=== PATIENT | male | born 1935 | race Caucasian/White ===

== ENCOUNTER → 2016-08-22 | Outpatient (CLI) | payer MEDICARE, OTHER ==
[~2016-08-22] MED LIST: ASPI81TA82 PO; CO Q60CA2 PO; ENAL5TAB98; ERYT1O RIGHT EYE; HYDR12.56 PO; LISI-363 PO; MULT-65 PO; OCUF0.3D OD; OCUVTAB4 PO; PERC5TAB12 PO; SIMV5TAB32; TAMS5CAP PO
== END ==
LOC: PLAB 07:43
PROVIDERS: ATTEND Urology
DX: R94.4 Abnormal results of kidney function studies (principal)
CPT/HCPCS: 36415; 82565; 84520

== ENCOUNTER → 2016-12-26 | Outpatient (CLI) | payer MEDICARE, OTHER ==
[~2016-12-26] MED LIST changes: +ASPI81TA5 PO; -ASPI81TA82 PO; +CO Q10CA PO; -CO Q60CA2 PO; -ENAL5TAB98; -ERYT1O RIGHT EYE; +FISH100020 PO; +GLUC500T4 PO; -HYDR12.56 PO; -LISI-363 PO; -MULT-65 PO; -OCUF0.3D OD; +ONCETAB7 PO; -PERC5TAB12 PO; +SIMV40TA PO; -SIMV5TAB32; -TAMS5CAP PO; +VITA100036 PO
[2016-12-26 09:43] LABS: AUTOMATED NEUTROPHIL # 2.3 TH/MM3 (1.8-7.7); BASOPHIL # 0.2 TH/MM3 (0-0.2); BASOPHIL % 3.1 % (0.0-2.0); EOSINOPHIL # 0.3 TH/MM3 (0-0.4); EOSINOPHIL % 5.9 % (0.0-4.0); HEMATOCRIT 28.1 % (39.0-51.0); HEMO FLAGS DIFF FINAL; LYMPH % 38.5 % (9.0-44.0); MEAN CELL VOLUME 102.9 FL (80.0-100.0); MEAN CORPUSCULAR HEMOGLOBIN 35.5 PG (27.0-34.0); MEAN CORPUSCULAR HGB CONC 34.5 % (32.0-36.0); MONO % 8.4 % (0.0-8.0); NEUT % 44.1 % (16.0-70.0); PLATELET COUNT 281 TH/MM3 (150-450); RED BLOOD COUNT 2.73 MIL/MM3 (4.50-5.90); RED CELL DISTRIBUTION WIDTH 14.4 % (11.6-17.2); WHITE BLOOD COUNT 5.3 TH/MM3 (4.0-11.0)
[2016-12-26 10:13] LABS: ANION GAP 10 MEQ/L (5-15); AST (GOT) 22 U/L (15-37); BICARBONATE 24.1 MEQ/L (21.0-32.0); BLOOD UREA NITROGEN 37 MG/DL (7-18); CHLORIDE 104 MEQ/L (98-107); GLOMERULAR FILTRATION RATE 43 ML/MIN (>89); SODIUM (NA) 138 MEQ/L (136-145)
[2016-12-26 10:14] LABS: GLUCOSE,FASTING 103 MG/DL (74-99)
[2016-12-26 10:27] LABS: ALKALINE PHOSPHATASE 101 U/L (45-117); ALT (GPT) 35 U/L (12-78); HDL CHOLESTEROL 54.8 MG/DL (40.0-60.0); LDL CHOLESTEROL 78 MG/DL (0-99); TOTAL BILIRUBIN ADULT 0.7 MG/DL (0.2-1.0)
[2016-12-26 18:10] LABS: HEMOGLOBIN A1b 0.9 %; HEMOGLOBIN Ao 85.3 %; HEMOGLOBIN P3 5.5 %
== END ==
LOC: PLAB 07:01
PROVIDERS: ATTEND Family Medicine
DX: R73.02 Impaired glucose tolerance (oral) (principal)
CPT/HCPCS: 36415; 80053; 80061; 83036; 84443; 85025

== ENCOUNTER → 2017-04-02 | Outpatient (CLI) | payer MEDICARE, OTHER ==
[2017-04-02 09:44] LABS: AUTOMATED NEUTROPHIL # 3.2 TH/MM3 (1.8-7.7); BASOPHIL # 0.2 TH/MM3 (0-0.2); BASOPHIL % 2.2 % (0.0-2.0); EOSINOPHIL # 0.5 TH/MM3 (0-0.4); EOSINOPHIL % 7.1 % (0.0-4.0); HEMATOCRIT 28.3 % (39.0-51.0); HEMOGLOBIN 9.8 GM/DL (13.0-17.0); LYMPH % 34.8 % (9.0-44.0); LYMPHOCYTE # 2.4 TH/MM3 (1.0-4.8); MEAN CELL VOLUME 104.7 FL (80.0-100.0); MEAN CORPUSCULAR HGB CONC 34.4 % (32.0-36.0); MEAN PLATELET VOLUME 8.7 FL (7.0-11.0); MONO % 8.3 % (0.0-8.0); MONOCYTE # 0.6 TH/MM3 (0-0.9); NEUT % 47.6 % (16.0-70.0); PLATELET COUNT 289 TH/MM3 (150-450); RED BLOOD COUNT 2.71 MIL/MM3 (4.50-5.90); RED CELL DISTRIBUTION WIDTH 14.1 % (11.6-17.2); WHITE BLOOD COUNT 6.8 TH/MM3 (4.0-11.0)
[2017-04-02 09:54] LABS: ALBUMIN 3.4 GM/DL (3.4-5.0); AST (GOT) 24 U/L (15-37); BICARBONATE 23.5 MEQ/L (21.0-32.0); BLOOD UREA NITROGEN 38 MG/DL (7-18); CALCIUM 9.2 MG/DL (8.5-10.1); CHLORIDE 105 MEQ/L (98-107); CREATININE 1.56 MG/DL (0.60-1.30); GLOMERULAR FILTRATION RATE 43 ML/MIN (>89); GLUCOSE,FASTING 99 MG/DL (74-99); SODIUM (NA) 138 MEQ/L (136-145)
[2017-04-02 10:04] LABS: % SATURATION IRON PROFILE 47.5 % (20-50); ALKALINE PHOSPHATASE 90 U/L (45-117); ALT (GPT) 30 U/L (12-78); FERRITIN 818 NG/ML (26-388); FREE T4 0.87 NG/DL (0.76-1.46); IRON (FE) 153 MCG/DL (65-175); TOTAL BILIRUBIN ADULT 0.6 MG/DL (0.2-1.0); TOTAL IRON BINDING CAPACITY 322 MCG/DL (250-450); TOTAL PROTEIN 6.8 GM/DL (6.4-8.2)
== END ==
LOC: PLAB 07:26
PROVIDERS: ATTEND Family Medicine
DX: E03.9 Hypothyroidism, unspecified (principal); N18.3 Chronic kidney disease, stage 3 (moderate)
CPT/HCPCS: 36415; 80053; 82306; 82728; 83540; 83550; 83970; 84439; 84443; 85025

== ENCOUNTER → 2017-07-14 | Day surgery (SDC) | payer MEDICARE, OTHER ==
[~2017-07-14] MED LIST changes: -ASPI81TA5 PO; +BUPIVACAINE HCL PF 0.5% 30 ML VIAL ONE; +CHOL10008 PO; +ECASA81 PO; +PROPOFOL 200 MG/20 ML AMP IV ONE; +TRIAMCINOLONE ACETONIDE 40 MG/ML VIAL I-ARTICULR ONE; -VITA100036 PO; +methylPREDNISolone ACETATE 40 MG/ML VIAL I-ARTICULR ONE
--- NOTE | 2017-07-15 23:01 | M6 ---
cc: ROSALBA CALDERON M.D. DATE: 07/14/2017 DATE OF : 1935 PROCEDURE Fluoroscopically guided injection right hip joint. History and physical was completed and signed. Consent was signed. Procedure site was marked. Medications were listed and reconciled. Pain score was recorded. Allergies were noted. Time out was taken. Fluoroscopy time was recorded where applicable. Sedation was administered or directed by Dr. Calderon. The patient was given oxygen. The patient was monitored by a registered nurse. Total procedure time was greater than 15 minutes. PROCEDURE NOTE: IV was started, blood pressure cuff, pulse oximeter and EKG were applied. The patient was placed in the supine position on a Alexi table sedated with small amounts of propofol titrated to effect. Vital signs were monitored and remained stable throughout the procedure. The right hip area was prepped with alcohol and 10% Betadine solution, draped with sterile drapes. Fluoroscopy was used to visualize the right acetabulum. A 3-1/2 inch 22-gauge spinal needle was advanced into the cephalad portion of the acetabulum. There was negative aspiration for blood or any other type of fluid and the patient was given 3 mL of 0.5% Marcaine, 20 mg of Depo-Medrol, 20 mg of Kenalog. Following the procedure the patient was taken to the recovery room with stable vital signs neurologically intact. W. MD CLEOPATRA Walker/TAMY /8:59 AM /10:47 PM
== END | disposition home or self-care (01) ==
LOC: PHSDC 06:38
PROVIDERS: ATTEND Pain Medicine Interventional Pain Medicine
DX: M25.551 Pain in right hip (principal); I35.0 Nonrheumatic aortic (valve) stenosis; E78.5 Hyperlipidemia, unspecified; I10 Essential (primary) hypertension; D64.9 Anemia, unspecified; R60.9 Edema, unspecified; Z85.51 Personal history of malignant neoplasm of bladder
CPT/HCPCS: 20610; 99152; J1030; J3301

== ENCOUNTER 2018-07-21 12:50 | Observation (INO) ==
[2018-07-21] MEDS ORDERED: Sod Chloride 0.9% Inj 1,000 ML IV.SIG SCH (13:15)
--- NOTE | 2018-07-21 13:36 | XR ---
EXAM DATE: 07/21/2018 1:33 PM EST AGE/SEX: 83 years / Male INDICATIONS: Fever, weakness, loss of appetite for a few days. Shoulder pain x 1 month with no known injury. CLINICAL DATA: This is the patient's initial encounter. Patient reports that signs and symptoms have been present for 4 - 6 days and indicates a pain score of 7/10. MEDICAL/SURGICAL HISTORY: Hypercholesterolemia. Hypertension. Hypothyroidism. Aortic stenosi s. Chronic kidney disease. None. COMPARISON: [facility], CHEST SINGLE AP, 01/15/2014. . FINDINGS: No significant focal pleural or parenchymal opacities. Mild interstitial prominence. Cardiomediastina l contours are within normal limits. Chronic appearing displaced right clavicle fracture. CONCLUSION: 1. No acute cardiopulmonary disease. 2. Senescent changes with chronic appearing displaced right clavicle fracture. Electronically signed by: Dayne Tracy MD Board Certified Radiologist 07/21/2018 1:34 PM EST
--- NOTE | 2018-07-21 13:39 | ED ---
HPI General Chief complaint: Weakness Stated complaint: Evac/weakness Time Seen by Provider: 07/21/18 12:57 Source: patient, family, EMS and old records reviewed Mode of arrival: EMS Limitations: altered mental status History of Present Illness HPI narrative: Elderly 83-year-old man, presents to the emergency department sent by home health for low blood pressure. Patient lives with his daughter, typically walks with a walker, has a lot of trouble getting around, has difficulty ambulating, needs assistance with toileting, can feed himself but is otherwise dependent on his ADLs. They report that he has had pain in his legs recently, some pain in his shoulder , saw Dr. Alfaro recently for shoulder pain and had an injection of steroids. Since then he has had continued worsening weakness, feeling poorly, decreased appetite. He said some weight loss over the past several months with his decreased appetite. home health nurse came to check on him today and found his blood pressure was low about 105 or so. Related Data Home Medications Medication Instructions Recorded Confirmed levothyroxine 25 mcg PO DAILY 07/21/18 07/21/18 lisinopril-hydrochlorothiazide 1 tab PO DAILY 07/21/18 07/21/18 simvastatin 40 mg PO QPM 07/21/18 07/21/18 tramadol 50 mg PO QID 07/21/18 07/21/18 Allergies Allergy/AdvReac Type Severity Reaction Status Date / Time No Known Allergies Allergy Verified 07/21/18 13:05 Review of Systems ROS: all other systems reviewed are negative [facility] Medical History Medical History Aortic stenosis (Acute) CKD (chronic kidney disease) (Acute) HTN (hypertension) (Acute) Hypercholesteremia (Acute) Hypothyroidism (Acute) Social History Social History Substance History: No History of Abuse Second Hand Smoke Exposure: No Smoking Status: Never smoker How Often Do You Have a Drink Containing Alcohol: Never Recent Travel in [facility] within the Last 8 Weeks: No Recent Out of Country Travel within the Last 8 Weeks: No Immunization History Tetanus Immunization: >5 Years Exam Narrative Exam Narrative: GENERAL: Elderly adult male, nontoxic, frail-appearing, chronically ill. SKIN: Focused skin assessment warm/dry. Decreased skin turgor. HEAD: Atraumatic. Normocephalic. EYES: Pupils equal and round. No scleral icterus. No injection or drainage. ENT: No nasal bleeding or discharge. Mucous membranes pink and moist. NECK: Trachea midline. No JVD. CARDIOVASCULAR: Regular rate and rhythm. No murmur appreciated. RESPIRATORY: No accessory muscle use. Clear to auscultation. Breath sounds equal bilaterally. GASTROINTESTINAL: Abdomen soft, non-tender, nondistended. Hepatic and splenic margins not palpable. MUSCULOSKELETAL: No obvious deformities. Trace swelling both lower extremities. NEUROLOGICAL: Awake and alert. Some confusion. No obvious cranial nerve deficits. Motor grossly within normal limits. Normal speech. Course Initial Documented Vital Signs Temperature 98.4 F 07/21/18 12:56 Pulse Rate 105 H 07/21/18 12:56 Respiratory Rate 16 07/21/18 12:56 Blood Pressure 100/59 L 07/21/18 12:56 Pulse Oximetry 98 07/21/18 12:56 Last Documented Vital Signs Temperature 98.4 F 07/21/18 12:56 Pulse Rate 98 H 07/21/18 15:46 Respiratory Rate 16 07/21/18 15:46 Blood Pressure 94/60 L 07/21/18 15:46 Pulse Oximetry 96 07/21/18 15:46 Medical Decision Making MDM Narrative Medical decision making narrative: 83-year-old man who presents to the emergency department complaining of chronic right shoulder pain, right hip pain , lower extremity pain, in the setting of decreased appetite, dehydration, weakness with low blood pressure and elevated tachycardia. Possible infection. Possible dehydration. Will check labs, IV fluids, urine, reassess. Medical Screen Exam Complete: Yes Emergency Medical Condition: Yes Lab Data Lab results reviewed: Yes I reviewed the patient's lab results. Result diagrams: 07/21/18 13:40 07/21/18 13:40 Lab Results 07/21/18 07/21/18 07/21/18 Range/Units 13:40 13:40 13:40 CBC w Diff Auto diff final WBC 12.8 H (4.0-11.0) th/mm3 RBC 2.91 L (4.50-5.90) mil/mm3 Hgb 10.1 L (13.0-17.0) gm/dL Hct 29.6 L (39.0-51.0) % MCV 101.9 H (80.0-100.0) fL MCH 34.9 H (27.0-34.0) pg MCHC 34.3 (32.0-36.0) % RDW 15.0 (11.6-17.2) % Plt Count 557 H (150-450) th/mm3 MPV 7.6 (7.0-11.0) fL Neut % (Auto) 73.4 H (16.0-70.0) % Lymph % (Auto) 17.4 (9.0-44.0) % Obion % (Auto) 7.6 (0.0-8.0) % Eos % (Auto) 0.7 (0.0-4.0) % Baso % (Auto) 0.9 (0.0-2.0) % Neut # (Auto) 9.4 H (1.8-7.7) th/mm3 Lymph # (Auto) 2.2 (1.0-4.8) th/mm3 Obion # (Auto) 1.0 H (0.0-0.9) th/mm3 Eos # (Auto) 0.1 (0.0-0.4) th/mm3 Baso # (Auto) 0.1 (0.0-0.2) th/mm3 WBC Differential . Differential Comment . Sodium 139 (136-145) meq/L Potassium 4.9 (3.5-5.1) meq/L Chloride 104 (98-107) meq/L Carbon Dioxide 26.4 (21.0-32.0) meq/L Anion Gap 9 (5-15) meq/L BUN 59 H (7-18) mg/dL Creatinine 1.50 H (0.60-1.30) mg/dL Estimated GFR 45 L (>89) mL/min Random Glucose 93 (74-106) mg/dL Lactic Acid 2.2 H (0.4-2.0) mmol/L Calcium 9.5 (8.5-10.1) mg/dL Magnesium 1.9 (1.5-2.5) mg/dL Total Bilirubin 0.7 (0.2-1.0) mg/dL AST 45 H (15-37) U/L ALT 36 (12-78) U/L Alkaline Phosphatase 479 H (45-117) U/L Troponin I 0.07 H (0.02-0.05) ng/mL Total Protein 7.8 (6.4-8.2) g/dL Albumin 2.4 L (3.4-5.0) g/dL Ur Collection Type Urine Color (Yellw/Straw) Urine Clarity (Clear) Urine pH (5.0-8.5) Ur Specific Lander (1.002-1.035) Urine Protein (Neg-Trace) mg/dL Urine Glucose (UA) (Negative) mg/dL Urine Ketones (Negative) mg/dL Urine Occult Blood (Negative) Urine Nitrate (Negative) Urine Bilirubin (Negative) Urine Urobilinogen (Less than 2) mg/dL Ur Leukocyte Esterase (Negative) Urine RBC (0-3) /hpf Ur Transition Epith Cell (None) /hpf Amorphous Sediment (None) /hpf Micro UA Comment Ur Microscopic Review Urine Culture Comments Urine Collection Time hours 07/21/18 Range/Units 15:00 CBC w Diff WBC (4.0-11.0) th/mm3 RBC (4.50-5.90) mil/mm3 Hgb (13.0-17.0) gm/dL Hct (39.0-51.0) % MCV (80.0-100.0) fL MCH (27.0-34.0) pg MCHC (32.0-36.0) % RDW (11.6-17.2) % Plt Count (150-450) th/mm3 MPV (7.0-11.0) fL Neut % (Auto) (16.0-70.0) % Lymph % (Auto) (9.0-44.0) % Obion % (Auto) (0.0-8.0) % Eos % (Auto) (0.0-4.0) % Baso % (Auto) (0.0-2.0) % Neut # (Auto) (1.8-7.7) th/mm3 Lymph # (Auto) (1.0-4.8) th/mm3 Obion # (Auto) (0.0-0.9) th/mm3 Eos # (Auto) (0.0-0.4) th/mm3 Baso # (Auto) (0.0-0.2) th/mm3 WBC Differential Differential Comment Sodium (136-145) meq/L Potassium (3.5-5.1) meq/L Chloride (98-107) meq/L Carbon Dioxide (21.0-32.0) meq/L Anion Gap (5-15) meq/L BUN (7-18) mg/dL Creatinine (0.60-1.30) mg/dL Estimated GFR (>89) mL/min Random Glucose (74-106) mg/dL Lactic Acid (0.4-2.0) mmol/L Calcium (8.5-10.1) mg/dL Magnesium (1.5-2.5) mg/dL Total Bilirubin (0.2-1.0) mg/dL AST (15-37) U/L ALT (12-78) U/L Alkaline Phosphatase (45-117) U/L Troponin I (0.02-0.05) ng/mL Total Protein (6.4-8.2) g/dL Albumin (3.4-5.0) g/dL Ur Collection Type Cath Urine Color Yellow (Yellw/Straw) Urine Clarity Clear (Clear) Urine pH 5.5 (5.0-8.5) Ur Specific Lander 1.020 (1.002-1.035) Urine Protein Negative (Neg-Trace) mg/dL Urine Glucose (UA) Negative (Negative) mg/dL Urine Ketones 15 H (Negative) mg/dL Urine Occult Blood Small H (Negative) Urine Nitrate Negative (Negative) Urine Bilirubin Negative (Negative) Urine Urobilinogen 0.2 (Less than 2) mg/dL Ur Leukocyte Esterase Negative (Negative) Urine RBC 4-15 H (0-3) /hpf Ur Transition Epith Cell Greater than 10 H (None) /hpf Amorphous Sediment Few H (None) /hpf Micro UA Comment Cath-culture not ind Ur Microscopic Review Microscopic reviewed Urine Culture Comments Cath-cult not ind Urine Collection Time 1500 hours Imaging Data Radiologist's impression: Chest X-Ray 07/21/18 13:07 CONCLUSION: 1. No acute cardiopulmonary disease. 2. Senescent changes with chronic appearing displaced right clavicle fracture. 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 Discharge Plan Discharge Disposition Patient Disposition: ED Admit(ED Internal Use Only) Discharge Order Discharge Orders: ED Use Only Admit Order (Routine); Ordered 07/21/18 Ordered By: Selvin Bourne Physicians Team ED Provider: Selvin Bourne Primary Care Provider: Robbi Peng Attending Provider: Khoa Beyer Discharge Interventions Interventions: Vital Signs Last Done: 07/21/18 13:54 Status ED Status: Admitted Observation Patient
[2018-07-21 14:05] LABS: Baso # (Auto) 0.1 th/mm3 (0.0-0.2); Baso % (Auto) 0.9 % (0.0-2.0); Eos # (Auto) 0.1 th/mm3 (0.0-0.4); Eos % (Auto) 0.7 % (0.0-4.0); Hematocrit 29.6 % (39.0-51.0); Hemoglobin 10.1 gm/dL (13.0-17.0); Lymph # (Auto) 2.2 th/mm3 (1.0-4.8); Lymph % (Auto) 17.4 % (9.0-44.0); Mean Corpuscular HGB Conc 34.3 % (32.0-36.0); Mean Corpuscular Hemoglobin 34.9 pg (27.0-34.0); Mean Corpuscular Volume 101.9 fL (80.0-100.0); Mean Platelet Volume 7.6 fL (7.0-11.0); Mono % (Auto) 7.6 % (0.0-8.0); Neut # (Auto) 9.4 th/mm3 (1.8-7.7); Neut % (Auto) 73.4 % (16.0-70.0); Platelet Count 557 th/mm3 (150-450); Red Blood Count 2.91 mil/mm3 (4.50-5.90); White Blood Count 12.8 th/mm3 (4.0-11.0)
[2018-07-21 14:06] LABS: Chloride 104 meq/L (98-107); Potassium 4.9 meq/L (3.5-5.1); Sodium 139 meq/L (136-145)
[2018-07-21 14:09] LABS: Albumin 2.4 g/dL (3.4-5.0); Calcium 9.5 mg/dL (8.5-10.1)
[2018-07-21 14:10] LABS: Anion Gap 9 meq/L (5-15); Blood Urea Nitrogen 59 mg/dL (7-18); Carbon Dioxide 26.4 meq/L (21.0-32.0); Glucose,Random 93 mg/dL (74-106); Magnesium 1.9 mg/dL (1.5-2.5)
[2018-07-21 14:13] LABS: Alanine Aminotransferase 36 U/L (12-78); Aspartate Aminotransferase 45 U/L (15-37); Glomerular Filtration Rate 45 mL/min (>89)
[2018-07-21 14:14] LABS: Total Protein 7.8 g/dL (6.4-8.2)
[2018-07-21 14:15] LABS: Alkaline Phosphatase 479 U/L (45-117)
[2018-07-21 14:18] LABS: Troponin I 0.07 ng/mL (0.02-0.05)
[2018-07-21 15:19] LABS: Bilirubin,Urine Negative (Negative); Clarity,Urine Clear (Clear); Color,Urine Yellow (Yellw/Straw); Glucose,Urine (UA) Negative (Negative); Leukocyte Esterase,Urine Negative (Negative); Nitrite,Urine Negative (Negative); PH,Urine 5.5 (5.0-8.5); Urobilinogen,Urine 0.2 mg/dL (Less than 2)
[2018-07-21 15:22] LABS: Amorphous Sediment,Urine Few /hpf; Transitional Epi Cells,Urine Greater than 10 /hpf
[2018-07-21] MEDS ORDERED: Acetaminophen 325 MG Tablet PO PRN (15:42)
--- NOTE | 2018-07-21 15:55 | P.HPIM ---
History of Present Illness Primary Care Physician: Robbi Peng MD Chief Complaint: Generalized weakness History of Present Illness: 83-year-old man with a past medical history of hypertension, hyperlipidemia, chronic kidney disease was brought to the ED for evaluation of generalized weakness, left shoulder and left hip pain as well as low BP. Morning, patient was noted to have systolic BP of 105. Is a decrease significant appetite. Patient was seen by his PCP and he did receive a steroid injection in the left shoulder 6-8 days ago. Patient currently lives with his daughter who states, he has been having trouble getting around and also had difficulty ambulating. There has been no recent trauma or fall reported. In the ED patient has soft BP, elevated lactic acid as well as WBC however UA and chest x-ray unremarkable. Review of Systems Review of Systems: all other systems reviewed are negative [facility] Medical History Medical History Aortic stenosis (Acute) CKD (chronic kidney disease) (Acute) HTN (hypertension) (Acute) Hypercholesteremia (Acute) Hypothyroidism (Acute) Social History Social History Substance History: No History of Abuse Second Hand Smoke Exposure: No Smoking Status: Never smoker How Often Do You Have a Drink Containing Alcohol: Never Recent Travel in [facility] within the Last 8 Weeks: No Recent Out of Country Travel within the Last 8 Weeks: No Immunization History Tetanus Immunization: >5 Years Medications and Allergies Allergies Allergy/AdvReac Type Severity Reaction Status Date / Time No Known Allergies Allergy Verified 07/21/18 13:05 Home Medications Medication Instructions Recorded Confirmed Type levothyroxine 25 mcg PO DAILY 07/21/18 07/21/18 History lisinopril-hydrochlorothiazide 1 tab PO DAILY 07/21/18 07/21/18 History simvastatin 40 mg PO QPM 07/21/18 07/21/18 History tramadol 50 mg PO QID 07/21/18 07/21/18 History Active Medications: Active Medications Acetaminophen (Tylenol) 650 mg PO Q4H PRN PRN Reason: Temp > 100.4 Al Hydroxide/Mg Hydroxide (Milk Of Magnesia Liq) 30 ml PO Q12H PRN PRN Reason: Mild Constipation Sodium Chloride (Ns Inj) 1,000 mls @ 100 mls/hr IV.CONT .Q10H [facility] Levothyroxine Sodium (Synthroid) 25 mcg PO DAILY [facility] Non-Formulary Medication (Simvastatin [Simvastatin]) 40 mg PO QPM [facility] Ondansetron HCl (Zofran Inj) 4 mg IV.PUSH Q6H PRN PRN Reason: NAUSEA OR VOMITING Sodium Chloride (Ns Flush) 2 ml IV.FLUSH PRN PRN PRN Reason: FLUSH AFTER USING IV ACCESS Sodium Chloride (Ns Flush) 2 ml IV.FLUSH BID [facility] Physical Exam Vital signs: Vital Signs 07/21/18 12:56 07/21/18 13:07 07/21/18 13:16 Temperature 98.4 F Pulse Rate 105 H 100 H 102 H Respiratory Rate 16 16 Blood Pressure 100/59 L 102/62 Pulse Oximetry 98 98 98 07/21/18 13:54 07/21/18 15:46 Temperature Pulse Rate 105 H 98 H Respiratory Rate 16 16 Blood Pressure 95/57 L 94/60 L Pulse Oximetry 97 96 Intake & Output 07/20/18 07/21/18 07/21/18 18:59 06:59 18:59 Weight 90.718 kg Narrative: GENERAL: Chronically ill elderly man in [facility] SKIN: Warm and dry. HEAD: Atraumatic. Normocephalic. EYES: Pupils equal and round. No scleral icterus. No injection or drainage. ENT: No nasal bleeding or discharge. Mucous membranes pink and moist. NECK: Trachea midline. No JVD. CARDIOVASCULAR: Regular rate and rhythm. RESPIRATORY: No accessory muscle use. Clear to auscultation. Breath sounds equal bilaterally. GASTROINTESTINAL: Abdomen soft, non-tender, nondistended. Hepatic and splenic margins not palpable. MUSCULOSKELETAL: Extremities without clubbing, cyanosis, or edema. No obvious deformities. NEUROLOGICAL: Awake and alert. No obvious cranial nerve deficits. Motor grossly within normal limits. Five out of 5 muscle strength in the arms and legs. PSYCHIATRIC: Appropriate mood and affect; insight and judgment normal. Urinary Catheter Management Straight: Cath placed during this visit: no Reason for continuing: Not indwelling catheter Results Labs CBC & Chem 7: 07/21/18 13:40 07/21/18 13:40 Imaging Impressions Chest X-Ray 07/21/18 13:07 CONCLUSION: 1. No acute cardiopulmonary disease. 2. Senescent changes with chronic appearing displaced right clavicle fracture. Caprini VTE Risk Assessment Caprini Risk Assessment Model: Point Value = 1 Point Value = 2 Point Value = 3 Point Value = 5 Age 41-60 Minor surgery BMI > 25 kg/m2 Swollen legs Varicose veins or History of unexplained or recurrent spontaneous Oral contraceptives or hormone replacement Sepsis (< 1 month) Serious lung disease, including pneumonia (< 1 month) Abnormal pulmonary function Acute myocardial infarction Congestive heart failure (< 1 month) History of inflammatory bowel disease Medical patient at bed rest Age 61-74 Arthroscopic surgery Major open surgery (> 45 min) Laparoscopic surgery (> 45 min) Malignancy Confined to bed (> 72 hours) Immobilizing plaster cast Central venous access Age >= 75 History of VTE Family history of VTE Factor V Leiden Prothrombin [id number] Lupus anticoagulant Anticardiolipin antibodies Elevated serum homocysteine Heparin-induced thrombocytopenia Other congenital or acquired thrombophilia Stroke (< 1 month) Elective arthroplasty Hip, pelvis, or leg fracture Acute spinal cord injury (< 1 month) Prophylaxis Regimen: Total Risk Factor Score Risk Level Prophylaxis Regimen 0-1 Low Early ambulation 2 Moderate Order ONE of the following: *Sequential Compression Device (SCD) *Heparin 5000 units SQ BID 3-4 Higher Order ONE of the following medications: *Heparin 5000 units SQ TID *Enoxaparin/Lovenox 40 mg SQ daily (WT < 150 kg, CrCl > 30 mL/min) *Enoxaparin/Lovenox 30 mg SQ daily (WT < 150 kg, CrCl > 10-29 mL/min) *Enoxaparin/Lovenox 30 mg SQ BID (WT < 150 kg, CrCl > 30 mL/min) AND/OR *Sequential Compression Device (SCD) 5 or more Highest Order ONE of the following medications: *Heparin 5000 units SQ TID (Preferred with Epidurals) *Enoxaparin/Lovenox 40 mg SQ daily (WT < 150 kg, CrCl > 30 mL/min) *Enoxaparin/Lovenox 30 mg SQ daily (WT < 150 kg, CrCl > 10-29 mL/min) *Enoxaparin/Lovenox 30 mg SQ BID (WT < 150 kg, CrCl > 30 mL/min) AND *Sequential Compression Device (SCD) Assessment and Plan Plan 83-year-old man with Hypotension Dehydration Will hold all oral antihypertensive medications Continue with IV fluid hydration Lactic acidosis Likely secondary to dehydration Continue with IV fluid hydration and monitor lactic acid level Leukocytosis Secondary to stress reactive UA negative, chest x-ray unremarkable Will hold on starting any IV antibiotics until blood culture report noted Continue to monitor WBC Chronic kidney disease Currently patient at baseline Continue to monitor BUN and creatinine, avoid all nephrotoxic drug Elevated troponin I Likely secondary to chronic kidney disease Patient denies any chest pain Continue to monitor Anemia of chronic disease H&H stable and patient denies any current gross bleeding Continue to monitor H&H Left shoulder and left hip pain Recent steroid injection to left shoulder Chronic and patient denies any recent fall or trauma Consult PT and OT Check left shoulder and left hip x-rays DVT prophylaxis: Bilateral SCDs
[2018-07-21] MEDS: Sod Chloride 0.9% Inj 1,000 ML IV.CONT SCH (16:35)
--- NOTE | 2018-07-21 20:58 | XR ---
EXAM DATE: 07/21/2018 8:54 PM EST AGE/SEX: 83 years / Male INDICATIONS: Fall. Hip pain. CLINICAL DATA: This is the patient's initial encounter. Patient reports that signs and symptoms have been present for 3 days and indicates a pain score of 7/10. MEDICAL/SURGICAL HISTORY: None. None. COMPARISON: POI, XR HIP AP AND LAT, RIGHT, 05/10/2016. . FINDINGS: Single view of the pelvis and 2 additional views of the right hip demonstrates severe arthritic regalado es of the right hip. There has been migration of the right hip superiorly with flattening of the femo ral head. No acute fracture. Degenerative changes lower lumbar spine. Osseous density is normal. So ft tissues are unremarkable. No radiopaque foreign bodies seen. 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 No acute fracture seen. Electronically signed by: Khoa Estrada MD Board Certified Radiologist 07/21/2018 8:57 PM EST
--- NOTE | 2018-07-21 22:51 | XR ---
EXAM DATE: 07/21/2018 8:53 PM EST AGE/SEX: 83 years / Male INDICATIONS: Fall. Fracture of right clavicle. CLINICAL DATA: This is the patient's initial encounter. Patient reports that signs and symptoms have been present for 3 days and indicates a pain score of 7/10. MEDICAL/SURGICAL HISTORY: None. None. COMPARISON: No prior exams available for comparison. FINDINGS: Views of the right clavicle demonstrates fracture of the distal shaft which appears old. Distal compo nent displaced inferiorly 2 cm AC joint intact. Degenerative changes are seen. No radiopaque foreig n bodies seen. CONCLUSION: Displaced right clavicle fracture which appears old. Electronically signed by: Khoa Estrada MD Board Certified Radiologist 07/21/2018 10:50 PM EST
[2018-07-22] MEDS: Sod Chloride 0.9% Inj 1,000 ML IV.CONT SCH ×2 (03:13→14:19)
[2018-07-22 06:43] LABS: Baso # (Auto) 0.1 th/mm3 (0.0-0.2); Baso % (Auto) 0.7 % (0.0-2.0); Eos # (Auto) 0.1 th/mm3 (0.0-0.4); Eos % (Auto) 0.8 % (0.0-4.0); Hematocrit 23.7 % (39.0-51.0); Hemoglobin 7.9 gm/dL (13.0-17.0); Lymph # (Auto) 2.2 th/mm3 (1.0-4.8); Lymph % (Auto) 20.9 % (9.0-44.0); Mean Corpuscular HGB Conc 33.5 % (32.0-36.0); Mean Corpuscular Hemoglobin 34.2 pg (27.0-34.0); Mean Corpuscular Volume 101.9 fL (80.0-100.0); Mean Platelet Volume 7.5 fL (7.0-11.0); Mono % (Auto) 9.9 % (0.0-8.0); Neut # (Auto) 7.2 th/mm3 (1.8-7.7); Neut % (Auto) 67.7 % (16.0-70.0); Platelet Count 383 th/mm3 (150-450); Red Blood Count 2.32 mil/mm3 (4.50-5.90); Red Cell Distribution Width 15.1 % (11.6-17.2); White Blood Count 10.6 th/mm3 (4.0-11.0)
[2018-07-22 07:01] LABS: Chloride 111 meq/L (98-107); Potassium 4.6 meq/L (3.5-5.1); Sodium 143 meq/L (136-145)
[2018-07-22 07:04] LABS: Calcium 8.8 mg/dL (8.5-10.1)
[2018-07-22 07:05] LABS: Albumin 1.8 g/dL (3.4-5.0); Anion Gap 6 meq/L (5-15); Blood Urea Nitrogen 62 mg/dL (7-18); Carbon Dioxide 26.2 meq/L (21.0-32.0); Glucose,Random 93 mg/dL (74-106)
[2018-07-22 07:07] LABS: Alanine Aminotransferase 28 U/L (12-78)
[2018-07-22 07:08] LABS: Aspartate Aminotransferase 33 U/L (15-37); Glomerular Filtration Rate 45 mL/min (>89)
[2018-07-22 07:09] LABS: Total Protein 5.8 g/dL (6.4-8.2)
[2018-07-22 07:10] LABS: Alkaline Phosphatase 357 U/L (45-117)
--- NOTE | 2018-07-22 09:52 | P.PNIM ---
Subjective Interval history: Follow-up hypotension/generalized weakness July 22, 2018patient seen and examined, reports some improvement of generalized weakness. BP still soft however patient denies any headache, chest pain or shortness of breath. Per daughter's account patient's skin tone looks better today Physical Exam Vital signs: Vital Signs 07/21/18 12:56 07/21/18 13:07 07/21/18 13:16 Temperature 98.4 F Pulse Rate 105 H 100 H 102 H Respiratory Rate 16 16 Blood Pressure 100/59 L 102/62 Pulse Oximetry 98 98 98 07/21/18 13:54 07/21/18 15:46 07/21/18 16:00 Temperature 97.6 F Pulse Rate 105 H 98 H 107 H Respiratory Rate 16 16 20 Blood Pressure 95/57 L 94/60 L 95/56 L Pulse Oximetry 97 96 97 07/21/18 20:00 07/22/18 00:00 07/22/18 08:00 Temperature 96.7 F L 97.4 F L 96 F L Pulse Rate 105 H 108 H 92 H Respiratory Rate 18 18 18 Blood Pressure 92/54 L 110/74 86/58 L Pulse Oximetry 95 96 97 Intake & Output 07/21/18 07/22/18 07/22/18 18:59 06:59 18:59 Intake Total 1000 / 1000 1000 / 1000 Output Total 450 / 450 Balance 1000 / 1000 550 / 550 Weight 82.7 kg 89.3 kg Intake: IV 1000 / 1000 1000 / 1000 NS Inj 1,000 ML @ 100 mls/hr IV 1000 / 1000 .CONT .Q10H MANNY Rx#:[id number] NS Inj 1,000 ML @ 1000 mls/hr 1000 / 1000 IV.SIG BOLUS MANNY Rx#:[id number] Output: Urine 450 / 450 Other: Date of Last Bowel Movement 07/16/18 07/15/18 Narrative: GENERAL: Chronically ill elderly man in [place] SKIN: Warm and dry. HEAD: Atraumatic. Normocephalic. EYES: Pupils equal and round. No scleral icterus. No injection or drainage. ENT: No nasal bleeding or discharge. Mucous membranes pink and moist. NECK: Trachea midline. No JVD. CARDIOVASCULAR: Regular rate and rhythm. RESPIRATORY: No accessory muscle use. Clear to auscultation. Breath sounds equal bilaterally. GASTROINTESTINAL: Abdomen soft, non-tender, nondistended. Hepatic and splenic margins not palpable. MUSCULOSKELETAL: Extremities without clubbing, cyanosis, or edema. No obvious deformities. NEUROLOGICAL: Awake and alert. No obvious cranial nerve deficits. Motor grossly within normal limits. Five out of 5 muscle strength in the arms and legs. PSYCHIATRIC: Appropriate mood and affect; insight and judgment normal. Urinary Catheter Management Straight: Cath placed during this visit: no Reason for continuing: Not indwelling catheter Results Labs CBC & Chem 7: 07/22/18 06:18 07/22/18 06:18 Imaging Imaging: Impressions Clavicle X-Ray 07/21/18 00:00 CONCLUSION: Displaced right clavicle fracture which appears old. 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 No acute fracture seen. Chest X-Ray 07/21/18 13:07 CONCLUSION: 1. No acute cardiopulmonary disease. 2. Senescent changes with chronic appearing displaced right clavicle fracture. Assessment and Plan Plan 83-year-old man with Hypotension Dehydration Continue to hold all oral antihypertensive medications Start midodrine 5 mg p.o. 3 times daily, Florinef 0.1 mg daily Continue with IV fluid hydration Lactic acidosis Likely secondary to dehydration Resolved with IV fluid hydration Leukocytosis Secondary to stress reactive Resolved UA negative, chest x-ray unremarkable Continue to hold on starting any IV antibiotics until blood culture report noted Continue to monitor WBC Chronic kidney disease Currently patient at baseline Continue to monitor BUN and creatinine, avoid all nephrotoxic drug Elevated troponin I Likely secondary to chronic kidney disease Patient denies any chest pain Continue to monitor Anemia of chronic disease H&H stable and patient denies any current gross bleeding Continue to monitor H&H Right shoulder and right hip pain Recent steroid injection to left shoulder Chronic and patient denies any recent fall or trauma Consult PT and OT Right hip x-ray unremarkable Right shoulder and clavicle x-ray with finding of old fracture DVT prophylaxis: Heparin Progress Note: Quality VTE Deep Vein Thrombosis/Pulmonary Embolism Present on Admission: No
[2018-07-22] MEDS: Heparin - SQ 10,000 UNITS/ML Vial SQ SCH (21:01)
[2018-07-23] MEDS: Sod Chloride 0.9% Inj 1,000 ML IV.CONT SCH ×2 (00:14→09:31)
--- NOTE | 2018-07-23 06:42 | ECG ---
Date Performed: 07/21/2018 Time Performed: 13:29:55 PTAGE: 83 years EKG: SINUS TACHYCARDIA PATTERN CONSISTENT WITH PULMONARY DISEASE LEFT ANTERIOR FASCICULAR BLOCK ABNORMAL ECG PREVIOUS TRACING : 01/15/2014 10.33 Since the previous tracing, no significant change noted DOCTOR: Gera Garza Interpretating Date/Time 07/23/2018 06:41:39
[2018-07-23] MEDS ORDERED: Collagenase Oint 30 GM Tube TOPICAL SCH (09:00)
--- NOTE | 2018-07-23 09:12 | P.PNIM ---
Subjective Interval history: Follow-up hypotension/generalized weakness July 23, 2018patient seen and examined, wound care nurse by the bedside. BP soft however improved from yesterday. Physical Exam Vital signs: Vital Signs 07/22/18 12:00 07/22/18 14:18 07/22/18 16:00 Temperature 96.6 F L 96.2 F L Pulse Rate 103 H 83 Respiratory Rate 18 20 Blood Pressure 82/48 L 80/50 L 85/47 L Pulse Oximetry 95 95 07/22/18 20:00 07/23/18 00:00 Temperature 96.8 F L 97.0 F L Pulse Rate 82 83 Respiratory Rate 20 20 Blood Pressure 96/63 L 100/59 L Pulse Oximetry 97 94 L Intake & Output 07/22/18 07/23/18 07/23/18 18:59 06:59 18:59 Intake Total 1140 / 1140 1000 / 1000 Balance 1140 / 1140 1000 / 1000 Weight 90.5 kg Intake: IV 900 / 900 1000 / 1000 NS Inj 1,000 ML @ 100 mls/hr IV 900 / 900 1000 / 1000 .CONT .Q10H MANNY Rx#:[id number] Oral 240 / 240 Other: # Voids 2 4 Date of Last Bowel Movement 07/22/18 07/22/18 # Bowel Movements 1 Narrative: GENERAL: Chronically ill elderly man in NAD SKIN: Warm and dry. HEAD: Atraumatic. Normocephalic. EYES: Pupils equal and round. No scleral icterus. No injection or drainage. ENT: No nasal bleeding or discharge. Mucous membranes pink and moist. NECK: Trachea midline. No JVD. CARDIOVASCULAR: Regular rate and rhythm. RESPIRATORY: No accessory muscle use. Clear to auscultation. Breath sounds equal bilaterally. GASTROINTESTINAL: Abdomen soft, non-tender, nondistended. Hepatic and splenic margins not palpable. MUSCULOSKELETAL: Extremities without clubbing, cyanosis, or edema. No obvious deformities. NEUROLOGICAL: Awake and alert. No obvious cranial nerve deficits. Motor grossly within normal limits. Five out of 5 muscle strength in the arms and legs. PSYCHIATRIC: Appropriate mood and affect; insight and judgment normal. Urinary Catheter Management Straight: Cath placed during this visit: no Reason for continuing: Not indwelling catheter Results Labs CBC & Chem 7: 07/22/18 06:18 07/22/18 06:18 Labs: Microbiology 07/21/18 13:45 Blood - Peripheral Aerobic Blood Culture - Preliminary No growth in 1 day 07/21/18 13:45 Blood - Peripheral Anaerobic Blood Culture - Preliminary No growth in 1 day 07/21/18 13:40 Blood - Peripheral Aerobic Blood Culture - Preliminary No growth in 1 day 07/21/18 13:40 Blood - Peripheral Anaerobic Blood Culture - Preliminary No growth in 1 day Assessment and Plan Plan 83-year-old man with Hypotension-improving Dehydration-resolved Continue to hold all oral antihypertensive medications Continue midodrine 5 mg p.o. 3 times daily, Florinef 0.1 mg daily Continue with IV fluid hydration Lactic acidosis Likely secondary to dehydration Resolved with IV fluid hydration Leukocytosis Secondary to stress reactive Resolved UA negative, chest x-ray unremarkable Continue to hold on starting any IV antibiotics until blood culture report noted Continue to monitor WBC Chronic kidney disease Currently patient at baseline Continue to monitor BUN and creatinine, avoid all nephrotoxic drug Elevated troponin I Likely secondary to chronic kidney disease Patient denies any chest pain Continue to monitor Anemia of chronic disease H&H stable and patient denies any current gross bleeding Continue to monitor H&H Right shoulder and right hip pain Recent steroid injection to left shoulder Chronic and patient denies any recent fall or trauma Consult PT and OT Right hip x-ray unremarkable Right shoulder and clavicle x-ray with finding of old fracture Decubitus ulcer Appreciate input from wound care nurse Continue with Dionne DVT prophylaxis: Heparin Progress Note: Quality VTE Deep Vein Thrombosis/Pulmonary Embolism Present on Admission: No
--- NOTE | 2018-07-23 09:25 | P.DS ---
DS: Providers Date of admission: 07/21/18 15:34 Primary care physician: Robbi Peng MD Brief History from admission: 83-year-old man with a past medical history of hypertension, hyperlipidemia, chronic kidney disease was brought to the ED for evaluation of generalized weakness, left shoulder and left hip pain as well as low BP. Morning, patient was noted to have systolic BP of 105. Is a decrease significant appetite. Patient was seen by his PCP and he did receive a steroid injection in the left shoulder 6-8 days ago. Patient currently lives with his daughter who states, he has been having trouble getting around and also had difficulty ambulating. There has been no recent trauma or fall reported. In the ED patient has soft BP, elevated lactic acid as well as WBC however UA and chest x-ray unremarkable. DS: Summary Hypertension generalized weakness. He was initially started on IV fluid however midodrine 5 mg p.o. 3 times daily Florinef 0.1 mg was added to regiment with improvement of blood pressure. He was continued treatment for other chronic medical conditions. PT was consulted. Wound care nurse was consulted and patient was treated for this decubitus ulcer. DVT prophylaxis were provided. Prior to discharge, patient has improvement on his vitals. Recommendation has been made for patient to be discharged to rehab. Time Spent with Patient Total time spent providing and/or coordinating discharge services: Greater than 30 minutes Quality: VTE Deep Vein Thrombosis/Pulmonary Embolism Present on Admission: No Exam Narrative Exam Narrative: GENERAL: NAD SKIN: Warm and dry. HEAD: Atraumatic. Normocephalic. EYES: Pupils equal and round. No scleral icterus. No injection or drainage. ENT: No nasal bleeding or discharge. Mucous membranes pink and moist. NECK: Trachea midline. No JVD. CARDIOVASCULAR: Regular rate and rhythm. RESPIRATORY: No accessory muscle use. Clear to auscultation. Breath sounds equal bilaterally. GASTROINTESTINAL: Abdomen soft, non-tender, nondistended. Hepatic and splenic margins not palpable. MUSCULOSKELETAL: Extremities without clubbing, cyanosis, or edema. No obvious deformities. NEUROLOGICAL: Awake and alert. No obvious cranial nerve deficits. Motor grossly within normal limits. Five out of 5 muscle strength in the arms and legs. Normal speech. PSYCHIATRIC: Appropriate mood and affect; insight and judgment normal. Results Labs on day of discharge: Preliminary micro results at discharge 07/21/18 13:45 Aerobic Blood Culture - Preliminary Blood - Peripheral No growth in 1 day Anaerobic Blood Culture - Preliminary No growth in 1 day 07/21/18 13:40 Aerobic Blood Culture - Preliminary Blood - Peripheral No growth in 1 day Anaerobic Blood Culture - Preliminary No growth in 1 day Impressions ITS Impressions Clavicle X-Ray 07/21/18 00:00 CONCLUSION: Displaced right clavicle fracture which appears old. 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 No acute fracture seen. Chest X-Ray 07/21/18 13:07 CONCLUSION: 1. No acute cardiopulmonary disease. 2. Senescent changes with chronic appearing displaced right clavicle fracture. Discharge Plan Discharge Disposition Patient Disposition: Discharge to SNF Discharge Order Discharge Orders: Discharge Order (Routine); Ordered 07/23/18 Ordered By: Khoa Beyer Physicians Team ED Provider: Selvin Bourne Primary Care Provider: Robbi Peng Attending Provider: Khoa Beyer Rxs /Orders / Referrals /Forms Prescriptions: New midodrine 5 mg Tablet 5 mg PO TID@0700,1200,1700 Qty: 90 RF: 0 collagenase clostridium histo. [Santyl] 250 unit/gram Ointment 1 applicatio topical DAILY Qty: 1 RF: 0 fludrocortisone 0.1 mg Tablet 0.1 mg PO DAILY Qty: 30 RF: 0 Continue tramadol 50 mg Tablet 50 mg PO QID RF: 0 simvastatin 40 mg Tablet 40 mg PO QPM RF: 0 levothyroxine 25 mcg Tablet 25 mcg PO DAILY RF: 0 Discontinued lisinopril-hydrochlorothiazide 20-12.5 mg Tablet 1 tab PO DAILY RF: 0 Referrals: Robbi Peng MD [Primary Care Provider] - See Instructions Discharge Interventions Interventions: Discharge Planning - Case Management Last Done: 07/21/18 16:08 Status ED Status: Left Department
[2018-07-23] MEDS: Heparin - SQ 10,000 UNITS/ML Vial SQ SCH (09:34)
[2018-07-23 09:59] VITALS: PULSE 93
--- NOTE | 2018-07-23 10:16 | P.PNWCN ---
Wound Care Nurse Consult Description: Received pressure ulcer consult for coccyx area from Doctor Kayleen. Communicated with: IFRAH Shane [facility] 3rd floor, Ameena Bland APRN, and Doctor Kayleen. Recommendation: 1. Please cleanse wound to Sacral area with normal saline only, Do not use wound cleanser with Santyl. 2. Apply Santyl arlen thickness to wound bed with Saline moistened 2x2 fluffed gauze covering wound bed and avoiding wound edges. 3. line wound edges with a thin layer of Calazime skin protectant paste. 4. Cover wound with Optifoam gentle 6x6 dressing and change daily. 5. Please turn and reposition patient every 2 hours and PRN for comfort and offloading of pressure from rafi prominences. Wound/Pressure Injury - Wound Sacrum Wound Staging: Unstageable Wound Assessment: Ongoing Wound Type: Pressure Injury Requested from Provider a Wound Care Consult: Yes Length (cm): 6.3 Width (cm): 2.6 Depth (cm): 0 ( Van slough) Wound Bed Appearance: Wound bed presents with ~80% dry, adherent, van slough and ~20% dark red tissue. Periwound presents with purple colored wound edge between 12 and 6 o' clock, with surround erythematous denuded skin. Surrounding Tissue Temperature: Warm Drainage Description: Serosanguinous Drainage Amount: Scant Drainage Odor: No Odor Dressing Status: Changed Cleansing Solution: Saline Cover Dressing: Optifoam gentle 4x4 Wound Dressing Change Date: 07/23/18 Wound Margin Description: Well defined with elliptical shape and purple edges between 12 and 6 o'clock - Additional Information Patient seen on 3rd floor [facility] for evaluation of possible pressure injury to coccyx area. Patient was turned by Indio Allen CNA and teletypewriter operator toward the R side. Patient does not assist with turns. Patinet is noted with sacral hydrocolloid in place, that is saturated and dislodging from the center of the dressing. Dressing was saturated with urine. Removed dressing to reveal open wound over sacral area. Wound bed presents with ~80% dry, adherent, van slough and ~20% dark red tissue. Wound appears pressure related and is a unstageable due to coverage of slough in wound bed.Periwound presents with purple colored wound edge between 12 and 6 o'clock, with surround erythematous denuded skin. Urine was cleansed from skin, Wound was cleansed with normal saline and patted dry.Applied sure prep skin barrier film to periwound and covered wound with 4x4 Optifoam gentle.Patient tolerated wound assessment and dressing change well.
[2018-07-23 12:57] VITALS: BP 96/55; TEMP 97.5; O2SAT 95
[2018-07-23 15:12] VITALS: RESP 18
[2018-07-24] MEDS ORDERED: Collagenase Oint 30 GM Tube TOPICAL SCH (09:00)
== END 2018-07-23 17:25 ==
LOC: PHEDA 12:50 → PHED 12:50 → PHEDA 16:16 → PH3 16:17
PROVIDERS: ADMIT Hospitalist; ATTEND Hospitalist
DX: R00.0 Tachycardia, unspecified; D63.1 Anemia in chronic kidney disease; D72.829 Elevated white blood cell count, unspecified; E03.9 Hypothyroidism, unspecified; E86.0 Dehydration; I95.9 Hypotension, unspecified; I12.9 Hypertensive chronic kidney disease with stage 1 through stage 4 chronic kidney disease, or unspecified chronic kidney disease; I35.0 Nonrheumatic aortic (valve) stenosis; X58.XXXD Exposure to other specified factors, subsequent encounter; N18.9 Chronic kidney disease, unspecified; R74.8 Abnormal levels of other serum enzymes; L89.150 Pressure ulcer of sacral region, unstageable; M25.552 Pain in left hip; E78.5 Hyperlipidemia, unspecified; Z79.899 Other long term (current) drug therapy; E87.2 Acidosis; S42.001D Fracture of unspecified part of right clavicle, subsequent encounter for fracture with routine healing
CPT/HCPCS: 71010; 71045; 73000; 73502; 80053; 81001; 83605; 83735; 84484; 85025; 87040; 90760; 93005; 96360; 96361; 96372; 97110; 97116; 97162; 97166; 99285; G0378; G8987; G8988; J1644; J7030; P9612